=== PATIENT | female | born 1990 ===

== ENCOUNTER 2019-11-19 20:48 | Emergency (ER) | payer SELFPAY ==
[2019-11-19 22:02] LABS: Bacteria,Urine 1+ /HPF (Negative); Bilirubin,Urine NEG (Negative); Blood,Urine SM (Negative); Color,Urine Straw (Yellow); Protein,Urine <15 mg/dL mg/dL (Negative); RBC,Urine < 1.0 /HPF (0.0-6.0); Urobilinogen,Urine < 2.0 mg/dL (<2.0); WBC,Urine < 1.0 /HPF (0.0-6.0)
[2019-11-19 22:08] LABS: Amphetamine Screen,Urine PRESUMPTIVE NEGATIVE; Benzodiazepines Screen,Urine PRESUMPTIVE NEGATIVE; Cannabinoid Screen,Urine PRESUMPTIVE NEGATIVE; Cocaine Screen,Urine PRESUMPTIVE NEGATIVE; Methadone Screen,Urine PRESUMPTIVE NEGATIVE; Opiate Screen,Urine PRESUMPTIVE NEGATIVE
--- NOTE | 2019-11-19 22:19 | Emergency Department Report ---
<WALLACE LESTER - Last Filed: 11/20/19 02:04> ED Psych HPI - General Chief Complaint: Psych Stated Complaint: MH,EXPLOSIVE OUTBURST AND POSS SCHIZOPHRENIA Time Seen by Provider: 11/19/19 21:46 Source: patient Mode of arrival: Ambulatory Limitations: No Limitations - History of Present Illness Initial Comments: 29-year-old female with a past medical history of schizophrenia off meds for at least 1 year is brought into the hospital by a family member for having aggressive and violent verbal outbursts. Patient has not been physically violent with anybody. She is had a auditory and visual hallucinations with worsening outbursts over the last 2 weeks. No physical complaints reported. There are no reports of suicidal homicidal ideation. Patient states she just needs to sleep. - Related Data Home Medications Medication Instructions Recorded Confirmed Last Taken ARIPiprazole [Abilify] 20 mg PO 11/20/19 Unknown QUEtiapine [SEROquel] 25 mg PO 11/20/19 Unknown buPROPion [Wellbutrin] 75 mg PO 11/20/19 Unknown traZODone [Desyrel] 50 mg PO QHS 11/20/19 Unknown Allergies Allergy/AdvReac Type Severity Reaction Status Date / Time No Known Allergies Allergy Unverified 11/19/19 21:41 ED Review of Systems Comment: All other systems reviewed and negative ED Past Medical Hx - Past Medical History Previous Medical History?: Yes Hx Psychiatric Treatment: Yes (Schizophrenia) - Surgical History Past Surgical History?: No - Social History Smoking Status: Current Every Day Smoker Substance Use Type: Alcohol, Marijuana, Other - Medications Home Medications: Home Medications Medication Instructions Recorded Confirmed Last Taken Type ARIPiprazole [Abilify] 20 mg PO 11/20/19 Unknown History QUEtiapine [SEROquel] 25 mg PO 11/20/19 Unknown History buPROPion [Wellbutrin] 75 mg PO 11/20/19 Unknown History traZODone [Desyrel] 50 mg PO QHS 11/20/19 Unknown History ED Physical Exam - General Limitations: No Limitations - Other Other exam information: General: No acute distress Head: Atraumatic Eyes: normal appearance ENT: Moist mucous membranes Neck: Normal appearance, no midline tenderness Chest: Clear to auscultation bilaterally CV: Regular rate and rhythm Abdomen: Soft, normal bowel sounds, nontender, nondistended, no rebound or guarding Back: Normal inspection Extremity: Normal inspection, full range of motion Neuro: Alert O x 3, no facial asymmetry, speech clear, no gross motor sensory deficit Psych: Appropriate behavior Skin: No rash ED Course - Reevaluation(s) Reevaluation #1: 11/20/19 02:03 pt required Geodon in the ED for increasing agitation. Mother health consult ordered for a.m. when available. Patient is medically cleared.psc 11/20/19 02:04 Psychiatric hold orders placed ED Medical Decision Making - Lab Data Result diagrams: 11/19/19 21:44 11/19/19 21:44 Lab Results 11/19/19 11/19/19 11/19/19 Range/Units 21:44 21:44 21:44 WBC (4.5-11.0) K/mm3 RBC (3.65-5.03) M/mm3 Hgb (10.1-14.3) gm/dl Hct (30.3-42.9) % MCV (79-97) fl MCH (28-32) pg MCHC (30-34) % RDW (13.2-15.2) % Plt Count (140-440) K/mm3 Lymph % (Auto) (13.4-35.0) % [place] % (Auto) (0.0-7.3) % Eos % (Auto) (0.0-4.3) % Baso % (Auto) (0.0-1.8) % Lymph # (1.2-5.4) K/mm3 [place] # (0.0-0.8) K/mm3 Eos # (0.0-0.4) K/mm3 Baso # (0.0-0.1) K/mm3 Seg Neutrophils % (40.0-70.0) % Seg Neutrophils # (1.8-7.7) K/mm3 Sodium 141 (137-145) mmol/L Potassium 3.5 L (3.6-5.0) mmol/L Chloride 102.5 (98-107) mmol/L Carbon Dioxide 21 L (22-30) mmol/L Anion Gap 21 mmol/L BUN 8 (7-17) mg/dL Creatinine 0.5 L (0.7-1.2) mg/dL Estimated GFR > 60 ml/min BUN/Creatinine Ratio 16 % Glucose 84 (65-100) mg/dL Calcium 9.8 (8.4-10.2) mg/dL Urine Color (Yellow) Urine Turbidity (Clear) Urine pH (5.0-7.0) Ur Specific [place] (1.003-1.030) Urine Protein (Negative) mg/dL Urine Glucose (UA) (Negative) mg/dL Urine Ketones (Negative) mg/dL Urine Blood (Negative) Urine Nitrite (Negative) Urine Bilirubin (Negative) Urine Urobilinogen (<2.0) mg/dL Ur Leukocyte Esterase (Negative) Urine WBC (Auto) (0.0-6.0) /HPF Urine RBC (Auto) (0.0-6.0) /HPF U Epithel Cells (Auto) (0-13.0) /HPF Urine Bacteria (Auto) (Negative) /HPF Urine HCG, Qual (Negative) Salicylates < 0.3 L (2.8-20.0) mg/dL Urine Opiates Screen Urine Methadone Screen Acetaminophen < 5.0 L (10.0-30.0) ug/mL Ur Barbiturates Screen Ur Phencyclidine Scrn Ur Amphetamines Screen U Benzodiazepines Scrn Urine Cocaine Screen U Marijuana (THC) Screen Drugs of Abuse Note Plasma/Serum Alcohol (0-0.07) % 11/19/19 11/19/19 11/19/19 Range/Units 21:44 21:44 Unknown WBC 7.5 (4.5-11.0) K/mm3 RBC 4.19 (3.65-5.03) M/mm3 Hgb 13.3 (10.1-14.3) gm/dl Hct 39.6 (30.3-42.9) % MCV 94 (79-97) fl MCH 32 (28-32) pg MCHC 34 (30-34) % RDW 13.6 (13.2-15.2) % Plt Count 314 (140-440) K/mm3 Lymph % (Auto) 21.1 (13.4-35.0) % [place] % (Auto) 6.3 (0.0-7.3) % Eos % (Auto) 1.8 (0.0-4.3) % Baso % (Auto) 0.7 (0.0-1.8) % Lymph # 1.6 (1.2-5.4) K/mm3 [place] # 0.5 (0.0-0.8) K/mm3 Eos # 0.1 (0.0-0.4) K/mm3 Baso # 0.1 (0.0-0.1) K/mm3 Seg Neutrophils % 70.1 H (40.0-70.0) % Seg Neutrophils # 5.3 (1.8-7.7) K/mm3 Sodium (137-145) mmol/L Potassium (3.6-5.0) mmol/L Chloride (98-107) mmol/L Carbon Dioxide (22-30) mmol/L Anion Gap mmol/L BUN (7-17) mg/dL Creatinine (0.7-1.2) mg/dL Estimated GFR ml/min BUN/Creatinine Ratio % Glucose (65-100) mg/dL Calcium (8.4-10.2) mg/dL Urine Color Straw (Yellow) Urine Turbidity Clear (Clear) Urine pH 5.0 (5.0-7.0) Ur Specific [place] 1.005 (1.003-1.030) Urine Protein <15 mg/dl (Negative) mg/dL Urine Glucose (UA) Neg (Negative) mg/dL Urine Ketones Neg (Negative) mg/dL Urine Blood Sm (Negative) Urine Nitrite Neg (Negative) Urine Bilirubin Neg (Negative) Urine Urobilinogen < 2.0 (<2.0) mg/dL Ur Leukocyte Esterase Neg (Negative) Urine WBC (Auto) < 1.0 (0.0-6.0) /HPF Urine RBC (Auto) < 1.0 (0.0-6.0) /HPF U Epithel Cells (Auto) < 1.0 (0-13.0) /HPF Urine Bacteria (Auto) 1+ (Negative) /HPF Urine HCG, Qual (Negative) Salicylates (2.8-20.0) mg/dL Urine Opiates Screen Urine Methadone Screen Acetaminophen (10.0-30.0) ug/mL Ur Barbiturates Screen Ur Phencyclidine Scrn Ur Amphetamines Screen U Benzodiazepines Scrn Urine Cocaine Screen U Marijuana (THC) Screen Drugs of Abuse Note Plasma/Serum Alcohol 0.05 (0-0.07) % 11/19/19 11/20/19 Range/Units Unknown 00:23 WBC (4.5-11.0) K/mm3 RBC (3.65-5.03) M/mm3 Hgb (10.1-14.3) gm/dl Hct (30.3-42.9) % MCV (79-97) fl MCH (28-32) pg MCHC (30-34) % RDW (13.2-15.2) % Plt Count (140-440) K/mm3 Lymph % (Auto) (13.4-35.0) % [place] % (Auto) (0.0-7.3) % Eos % (Auto) (0.0-4.3) % Baso % (Auto) (0.0-1.8) % Lymph # (1.2-5.4) K/mm3 [place] # (0.0-0.8) K/mm3 Eos # (0.0-0.4) K/mm3 Baso # (0.0-0.1) K/mm3 Seg Neutrophils % (40.0-70.0) % Seg Neutrophils # (1.8-7.7) K/mm3 Sodium (137-145) mmol/L Potassium (3.6-5.0) mmol/L Chloride (98-107) mmol/L Carbon Dioxide (22-30) mmol/L Anion Gap mmol/L BUN (7-17) mg/dL Creatinine (0.7-1.2) mg/dL Estimated GFR ml/min BUN/Creatinine Ratio % Glucose (65-100) mg/dL Calcium (8.4-10.2) mg/dL Urine Color (Yellow) Urine Turbidity (Clear) Urine pH (5.0-7.0) Ur Specific [place] (1.003-1.030) Urine Protein (Negative) mg/dL Urine Glucose (UA) (Negative) mg/dL Urine Ketones (Negative) mg/dL Urine Blood (Negative) Urine Nitrite (Negative) Urine Bilirubin (Negative) Urine Urobilinogen (<2.0) mg/dL Ur Leukocyte Esterase (Negative) Urine WBC (Auto) (0.0-6.0) /HPF Urine RBC (Auto) (0.0-6.0) /HPF U Epithel Cells (Auto) (0-13.0) /HPF Urine Bacteria (Auto) (Negative) /HPF Urine HCG, Qual Negative (Negative) Salicylates (2.8-20.0) mg/dL Urine Opiates Screen Presumptive negative Urine Methadone Screen Presumptive negative Acetaminophen (10.0-30.0) ug/mL Ur Barbiturates Screen Presumptive negative Ur Phencyclidine Scrn Presumptive negative Ur Amphetamines Screen Presumptive negative U Benzodiazepines Scrn Presumptive negative Urine Cocaine Screen Presumptive negative U Marijuana (THC) Screen Presumptive negative Drugs of Abuse Note Disclamer Plasma/Serum Alcohol (0-0.07) % Critical Care Time: No ED Disposition Clinical Impression: Psychoses, Schizophrenia, Irritability and anger, Noncompliance with medication regimen, Medical clearance for psychiatric admission Disposition: DC-01 TO HOME OR SELFCARE Is pt being admited?: No Condition: Stable Referrals: [facility] [Outside] - 3-5 Days <ROXIE CANALES - Last Filed: 11/20/19 10:38> ED Review of Systems ROS: Stated complaint: MH,EXPLOSIVE OUTBURST AND POSS SCHIZOPHRENIA Other details as noted in HPI ED Course Vital Signs 11/19/19 11/19/19 11/19/19 21:08 21:30 22:00 Temperature 98.4 F 98.4 F 98.4 F Pulse Rate 79 81 78 Respiratory 18 18 20 Rate Blood Pressure 153/103 153/103 O2 Sat by Pulse 100 99 98 Oximetry 11/20/19 11/20/19 01:49 07:36 Temperature 97.5 F L Pulse Rate 74 78 Respiratory 18 Rate Blood Pressure 147/91 136/96 O2 Sat by Pulse 100 Oximetry ED Medical Decision Making - Lab Data Result diagrams: 11/19/19 21:44 11/19/19 21:44 - Medical Decision Making Ms. Alfaro has been evaluated by our psychiatric team. She is stable for discharge at this time. She was provided outpatient resources. Critical care attestation.: If time is entered above; I have spent that time in minutes in the direct care of this critically ill patient, excluding procedure time. ED Disposition Is pt being admited?: No Does the pt Need Aspirin: No
[2019-11-19 22:51] LABS: Basophils # (Auto) 0.1 K/mm3 (0.0-0.1); Basophils % (Auto) 0.7 % (0.0-1.8); Eosinophils # (Auto) 0.1 K/mm3 (0.0-0.4); Eosinophils % (Auto) 1.8 % (0.0-4.3); Hematocrit 39.6 % (30.3-42.9); Hemoglobin 13.3 gm/dl (10.1-14.3); Lymphocytes # (Auto) 1.6 K/mm3 (1.2-5.4); Lymphocytes % (Auto) 21.1 % (13.4-35.0); Mean Corpuscular HGB Conc 34 % (30-34); Mean Corpuscular Volume 94 fl (79-97); Monocytes # (Auto) 0.5 K/mm3 (0.0-0.8); Monocytes % (Auto) 6.3 % (0.0-7.3); Platelet Count 314 K/mm3 (140-440); Red Blood Count 4.19 M/mm3 (3.65-5.03); Red Cell Distribution Width 13.6 % (13.2-15.2)
[2019-11-19 22:53] LABS: BUN/Creatinine Ratio 16; Blood Urea Nitrogen 8 mg/dL (7-17); Calcium 9.8 mg/dL (8.4-10.2); Hemolysis Index 4
[2019-11-19] MEDS ORDERED: ZIPRASIDONE MESYLATE 20 MG VIAL IM ONE (22:54)
[2019-11-20 00:39] LABS: HCG Qualitative,Urine Negative (Negative)
[2019-11-20] MEDS ORDERED: POTASSIUM CHLORIDE ER 20 MEQ TAB PO ONE (01:28)
[2019-11-20 09:17] VITALS: BP 136/96
== END 2019-11-20 11:15 | disposition home or self-care (01) ==
LOC: ED 20:48
DX: F29 Unspecified psychosis not due to a substance or known physiological condition (principal); F20.9 Schizophrenia, unspecified; R45.4 Irritability and anger; F17.200 Nicotine dependence, unspecified, uncomplicated; F12.10 Cannabis abuse, uncomplicated; Z04.6 Encounter for general psychiatric examination, requested by authority; Z91.14 Patient's other noncompliance with medication regimen; Z79.899 Other long term (current) drug therapy
CPT/HCPCS: 36415; 80048; 80307; 81001; 81025; 85025; 96372; 99284; J3486; 80320; G0480